=== PATIENT | female | born 1950 | race Caucasian/White ===

== ENCOUNTER 2018-06-12 19:11 | Emergency (ER) | payer BC ==
--- NOTE | 2018-06-12 19:32 | PDOC ---
History of Present Illness - General Stated Complaint: WEAKNESS History Source: Patient Exam Limitations: No Limitations - History of Present Illness Initial Comments: 06/12/18 19:53 CC: "I'm vomiting". 67 year old female with PMH HTN, HLD, NIDDM, hypothyroidism presented to ED for nausea, vomiting, diarrhea, epigastric pain since 1000 today. She stated she ate porkchop and iceberg lettuce last night, went to sleep okay, woke up fine, and at 1000 today her symptoms began. Her stated he ate all of the same food and is not sick. No sick contacts. Pt stated her abdominal pain is located to her epigastrium, intermittent, alleviated by vomiting, no aggravating factors , nonradiating. She admitted to headache, body aches, subjective fever/chills/ sweats, n/v/d/. She denied chest pain, shortness of breath, palpitations, weakness, numbness. She stated she had a near syncopal episode today, while walking to the bathroom, she felt lightheaded and she fell to the ground. Her stated he helped her to the ground, denied head injury, denied LOC. Stated the episode only lasted a couple of seconds. Allergies: Quinolones PCP: Dr. Reynolds Past History - Past Medical History Allergies/Adverse Reactions: Allergies Allergy/AdvReac Type Severity Reaction Status Date / Time Quinolones Allergy Rash Verified 06/12/18 19:43 Home Medications: Ambulatory Orders Atorvastatin Ca [Lipitor (Restricted To Cardiology)] 20 mg PO HS 03/09/12 Levothyroxine [Synthroid] 150 mcg PO DAILY 03/09/12 Verapamil HCl [Verapamil ER] 240 mg PO DAILY 03/09/12 metFORMIN XR [Glucophage Xr] mg PO DAILY@0700 03/09/12 Famotidine [Pepcid -] 20 mg PO BID #6 tablet 06/12/18 Ondansetron [Zofran Odt -] 4 mg SL TID PRN #9 od.tablet 06/12/18 Sulfamethoxazole/Trimethoprim [Bactrim Ds -] 1 tab PO BID #10 tablet 06/12/18 metroNIDAZOLE [Flagyl -] 500 mg PO TID #30 tablet 06/12/18 Cardiac Disorders: Yes (prior history of palpitations) Diabetes: Yes ([id number]) Hypercholesterolemia: Yes Thyroid Disease: Yes (hypothyroidism) - Family Disease History Family Disease History: Diabetes: Father (still alive), Heart Disease: Father - Suicide/Smoking/Psychosocial Hx Smoking Status: No Smoking History: Never smoked Have you smoked in the past 12 months: No Number of Cigarettes Smoked Daily: 0 Review of Systems - Review of Systems Able to Perform ROS?: Yes Comments:: 06/12/18 19:51 General: admitted to chills, night sweats, generalized weakness, body aches. HEENT: denied sore throat, rhinorrhea, ear pain. Heart: admitted to presyncope. denied chest pain, palpitations, lower extremity swelling, diaphoresis. Respiratory: denied shortness of breath, cough, sputum production, hemoptysis. Abdomen: admitted to abdominal pain, nausea, vomiting, diarrhea. denied constipation, blood in stool. : denied dysuria, increased urinary frequency, hematuria, urinary incontinence , flank pain. Back: denied back pain. Musculoskeletal: denied joint pain, muscle pain, joint swelling. Neurological: admitted to headache. denied dizziness, numbness, tingling, weakness. Skin: denied rash, laceration, abrasion. *Physical Exam - Physical Exam Comments: 06/12/18 19:53 Constitutional: Well-nourished, Well-developed, appearing stated age. HEENT: head is normocephalic, atraumatic. EOMI. PERRLA. oral mucosa dry. Neck: supple. Full ROM. Heart: regular rhythm. no murmurs, rubs or gallops. Lungs: clear to auscultation bilaterally. no crackles, rhonchi or wheezing. no stridor. Abdomen: soft, flat. tenderness to epigastric area. increase bowel sounds. no rebound, guarding, masses. Extremities: Peripheral pulses intact. No lower extremity edema. Neurological: CN 2-12 grossly intact. Moves all four extremities. Psych: awake, alert, oriented x3. Follows commands. Answers questions appropriately. ED Treatment Course - LABORATORY CBC & Chemistry Diagram: 06/12/18 19:50 06/12/18 19:50 Medical Decision Making - Medical Decision Making 06/12/18 19:57 67 year old female with above PMH presented to ED for epigastric pain, n/v/d/, body aches, headache, near syncopal episode. Initial Vital Signs Temp Pulse Resp BP Pulse Ox 99.1 F 78 16 119/61 99 06/12/18 19:15 06/12/18 19:15 06/12/18 19:15 06/12/18 19:15 06/12/18 19:15 Afebrile. No tachycardia. No tachypnea. Mild diastolic hypotension. No hypoxia on room air. Labs ordered: CBC, CMP, lipase, UA/UC, troponin, influenza A/B testing. Medications ordered: pepcid, maalox, zofran, 1000 cc normal saline bolus, tylenol Imaging ordered: CT abdomen/pelvis with IV contrast EKG: rate 93, regular rhythm, nonspecitic T wave abnormality. No change from 08/2011. Bedside GB ultrasound performed. - No GB wall thickening - No GB stones - No pericholecystic fluid Rectal temperature ordered. 06/12/18 20:46 CBC WBC 8.0 K/mm3 (4.0-10.0) 06/12/18 19:50 RBC 4.71 M/mm3 (3.60-5.2) 06/12/18 19:50 Hgb 14.9 GM/dL (10.7-15.3) 06/12/18 19:50 Hct 43.0 % (32.4-45.2) 06/12/18 19:50 MCV 91.4 fl (80-96) 06/12/18 19:50 MCH 31.7 pg (25.7-33.7) 06/12/18 19:50 MCHC 34.7 g/dl (32.0-36.0) 06/12/18 19:50 RDW 13.6 % (11.6-15.6) 06/12/18 19:50 Plt Count 264 K/MM3 (134-434) 06/12/18 19:50 MPV 9.3 fl (7.5-11.1) 06/12/18 19:50 Absolute Neuts (auto) 7.4 K/mm3 (1.5-8.0) 06/12/18 19:50 Neutrophils % 91.8 % (42.8-82.8) H D 06/12/18 19:50 Lymphocytes % 5.9 % (8-40) L D 06/12/18 19:50 Monocytes % 2.1 % (3.8-10.2) L 06/12/18 19:50 Eosinophils % 0.0 % (0-4.5) D 06/12/18 19:50 Basophils % 0.2 % (0-2.0) 06/12/18 19:50 Nucleated RBC % 0 % (0-0) 06/12/18 19:50 No leukocytosis Left shift. No anemia. 06/12/18 20:57 Rectal temperature 100.2 after tylenol administration. - Blood cultures, lactate, type and screen, coags ordered. - Morphine 4 mg ordered CMP Sodium 145 mmol/L (136-145) 06/12/18 19:50 Potassium 3.5 mmol/L (3.5-5.1) 06/12/18 19:50 Chloride 110 mmol/L (98-107) H 06/12/18 19:50 Carbon Dioxide 26 mmol/L (21-32) 06/12/18 19:50 Anion Gap 10 MMOL/L (8-16) 06/12/18 19:50 BUN 11 mg/dL (7-18) 06/12/18 19:50 Creatinine 0.8 mg/dL (0.55-1.3) 06/12/18 19:50 Creat Clearance w eGFR > 60 (>60) 06/12/18 19:50 Random Glucose 123 mg/dL (74-106) H 06/12/18 19:50 Calcium 8.2 mg/dL (8.5-10.1) L 06/12/18 19:50 Total Bilirubin 0.5 mg/dL (0.2-1) 06/12/18 19:50 AST 17 U/L (15-37) 06/12/18 19:50 ALT 20 U/L (13-61) 06/12/18 19:50 Alkaline Phosphatase 106 U/L (45-117) 06/12/18 19:50 Troponin I < 0.02 ng/ml (0.00-0.05) 06/12/18 19:50 Total Protein 7.4 g/dl (6.4-8.2) 06/12/18 19:50 Albumin 3.6 g/dl (3.4-5.0) 06/12/18 19:50 Lipase 112 U/L (73-393) 06/12/18 19:50 No clinically concerning electrolyte abnormalities. No TESFAYE. No transaminitis. Normal bilirubin. Normal lipase. Normal troponin. 06/12/18 21:29 Influenza A/B testing negative. 06/12/18 22:30 Lactate normal. Pt sleeping. CT abdomen/pelvis report: no acute abdominal pathology. no evidence of appendicitis, diverticulitis. No evidence of bowel obstruction, intra-abdominal abscess. I have reviewed the images myself with Dr. Roldan, we believe there is some fat stranding at the ascending colon. Dr. Sal called, went to [facility], message left. 06/12/18 22:59 Pt reassessed, stated her pain is 100% improved, currently 0/10. She stated her nausea/vomiting is resolved. Abdominal examination: abdomen soft, flat, tenderness to epigastrium. no rebound. no guarding. 06/13/18 00:00 CXR: no infiltrate. no pneumothorax. Pt will be discharged with Flagyl, Zofran, Pepcid. Pt will be discharged with Bactrim, pt informed to wait 24 hours and if nonsymptomatic to not take the Bactrim. Pt stated she is comfortable with the plan for care and will follow up with her PCP tomorrow. *DC/Admit/Observation/Transfer Diagnosis at time of Disposition: Abdominal pain, Nausea vomiting and diarrhea, Fever - Discharge Dispostion Condition at time of disposition: Improved - Prescriptions Prescriptions: Famotidine [Pepcid -] 20 mg PO BID #6 tablet metroNIDAZOLE [Flagyl -] 500 mg PO TID #30 tablet Ondansetron [Zofran Odt -] 4 mg SL TID PRN #9 od.tablet PRN Reason: Nausea And/Or Vomiting Sulfamethoxazole/Trimethoprim [Bactrim Ds -] 1 tab PO BID #10 tablet - Referrals Referrals: Gume Reynolds MD [Primary Care Provider] - - Patient Instructions Additional Instructions: You were seen today for abdominal pain. Your lab work was normal. Your EKG was normal. Your Cat-Scan was read as normal, we think there is a chance you have an infection in your colon. I have sent two antibiotics, zofran for nausea, pepcid for stomach acid to the pharmacy. hospice superintendent immediately. See your primary care doctor in 1-2 days. Your care is not complete until you follow up. Return to the Emergency Department for increasing pain, blood in vomit or stool, fever> 103F, fever>5 days, fever not responsive to tylenol/motrin, chest pain, shortness of breath, passing out or any other new, worsening or concerning symptoms. Medication instructions: START TAKING IMMEDIATELY: Flagyl, Pepcid TAKE NEEDED: Zofran WAIT 1 DAY: BACTRIM. If you are feeling better and the diarrhea is resolved after 24 hours, do not take the Bactrim. - Post Discharge Activity Forms/Work/School Notes: Back to Work, Parent(s) Back to Work Note
--- NOTE | 2018-06-12 19:39 | PDOC ---
Attending Attestation - HPI HPI: 06/12/18 20:59 Patient is a 67 year old female with a significant past medical history of HTN, HLD, Hypothyroid, diabetes (non insulin dependent), vertigo who presents to the ED with complaints of acute onset of subjective chills, epigastric AP, nausea, NBNB emesis and diarrhea that began this morning at 10 am. Patient reports eating pork chops and iceberg lettuce last night for dinner and went bed fine, but states this morning shortly after she woke up, she began to experience her symptoms. She reports experiencing associated symptoms of diarrhea and epigastric pain. Patient reports her and family eating the same meal as her but states she is the only individual who is experiencing these symptoms. Denies chest pain, Sob. Denies contact with sick individuals, out of state travelling. Denies dysuria, hematuria. Denies constipation. Denies trauma to affected area. Denies any loss consciousness. Denies any other symptoms. Allergies: Quinolones Social history: No smoking. No alcohol. No illicit drugs. Surgical history: None PMD: PCP: Dr. Reynolds - Physicial Exam PE: 06/12/18 20:59 Malaised appearing, dry membranes, nl conjunctiva, anicteric; neck supple. lungs clear, RRR, abdomen soft +epigastric TTP, no rebound or guarding. No CVAT. DACOSTA x4, no focal neuro deficits. No peripheral edema. normal color for ethnicity, WWP. <GayathriNj - Last Filed: 06/12/18 20:59> - Resident Resident Name: Janeth Christensen - ED Attending Attestation I have performed the following: I have examined & evaluated the patient, The case was reviewed & discussed with the resident, I agree w/resident's findings & plan - Medical Decision Making 06/12/18 21:02 I, Eliana Roldan MD, attest that this document has been prepared under my direction and personally reviewed by me in its entirety. I further attest, that it accurately reflects all work, treatment, procedures and medical decision -making performed by me. See HPI for details DDx abdominal pain: Renal colic, biliary colic, metabolic/electrolyte derangements. GERD, PUD, esophageal spasm, pancreatitis, hepatitis, constipation , colitis, gastroenteritis, cholecystitis, UTI, pyelonephritis, ileus, SBO, medication side effect, hernia, appendicitis, diverticulitis, mesenteric ischemia. Vital signs reviewed, +febrile rectally Prior notes reviewed, including admissions, discharges and consultations. laboratory results and imaging reviewed, basic labs and lytes wnl, notable for normal lactic acid, LFTs and lipase. stool guaiac negative for blood, flu negative. Cardiac panel_trop neg, x1, less likely cardiac origin EKG normal sinus rhythm, no interval abnormalities, narrow QRS, ST and T wave segments and morphology normal. ED course: IVF hydration, zofran, pepcid, GI cocktail. tylenol for analgesia/ antipyretic. additional morphine for AP. Bedside POCUS GB neg for stones, no sig sono reyes's, no pericholecystic fluid or wall edema. -spiked fever here rectally, septic workup including lactic, blood cultures. will do CT a/p to eval for intra abdominal pathology/infection as source stool sampling, O&p, blood and wbc/culture CT a/p no acute pathology, but on my visual interpretation, area of colitis, fat stranding and edema noted in ascending colon. attempts to call radiology, no answer. offered pt supportive care, hydration, PRN zofran/pepcid for upset stomach. pt had benign reexam of abdomen, well appearing and much more comfortable, elects for discharge offered abx, in case if fevers/sx do not resolve, but can continue to manage supportively given risks of abx use and no formal stool cultures Dispo: discharge in stable condition, close PCP follow up for reeval return precautions discussed 06/12/18 23:33 06/12/18 23:36 <Eliana Roldan - Last Filed: 06/12/18 23:37> Heart Score/ECG Review - ECG Impressions Normal ECG: Yes Comment:: 06/12/18 21:03 EKG normal sinus rhythm, no interval abnormalities, narrow QRS, ST and T wave segments and morphology normal. <Eliana Roldan - Last Filed: 06/12/18 23:37>
[2018-06-12] MEDS ORDERED: ONDANSETRON 4 MG/2 ML VIAL IVPUSH ONE (19:40)
[2018-06-12] MEDS ORDERED: SODIUM CHLORIDE 1,000 ML IV STA (19:40)
[2018-06-12 19:42] VITALS: BP 119/61; PULSE 78; BMI 33.8
[2018-06-12] MEDS ORDERED: ACETAMINOPHEN 1000 MG/100 ML VIAL (NON FORMULARY) IVPB ONE (19:48)
[2018-06-12] MEDS ORDERED: FAMOTIDINE 20 MG/50 ML IVPB 20 MG/50 ML MG IVPB ONE ×2 (19:48→20:19)
[2018-06-12] MEDS ORDERED: MAG HYDROX/AL HYDROX/SIMETH 30 ML UNIT-DOSE CUP PO ONE (19:48)
[2018-06-12 20:17] LABS: BASO % 0.2 % (0-2.0); HEMOGLOBIN 14.9 GM/dL (10.7-15.3); LYMPH % 5.9 % (8-40); MCH 31.7 pg (25.7-33.7); MCHC 34.7 g/dl (32.0-36.0); MEAN CELL VOLUME 91.4 fl (80-96); MEAN PLT VOLUME 9.3 fl (7.5-11.1); MONO % 2.1 % (3.8-10.2); NEUT % 91.8 % (42.8-82.8); PLATELET COUNT 264 K/MM3 (134-434); RBC 4.71 M/mm3 (3.60-5.2); RDW 13.6 % (11.6-15.6)
[2018-06-12] MEDS ORDERED: MAG HYDROX/AL HYDROX/SIMETH 30 ML UNIT-DOSE CUP ONE ×2 (20:19→20:20)
[2018-06-12] MEDS ORDERED: ONDANSETRON 4 MG/2 ML VIAL ONE (20:19)
[2018-06-12] MEDS ORDERED: ACETAMINOPHEN INJECTION 100 ML IVPB ONE (20:19)
[2018-06-12 20:48] LABS: ALBUMIN 3.6 g/dl (3.4-5.0); ALK PHOS 106 U/L (45-117); ANION GAP 10 MMOL/L (8-16); BILIRUBIN,TOTAL 0.5 mg/dL (0.2-1); BLOOD UREA NITROGEN 11 mg/dL (7-18); CALCIUM 8.2 mg/dL (8.5-10.1); CHLORIDE 110 mmol/L (98-107); CO2 26 mmol/L (21-32); CREATININE 0.8 mg/dL (0.55-1.3); GLUCOSE,RANDOM 123 mg/dL (74-106); LIPASE 112 U/L (73-393); POTASSIUM 3.5 mmol/L (3.5-5.1); SGOT/AST 17 U/L (15-37); SGPT/ALT 20 U/L (13-61); SODIUM 145 mmol/L (136-145); TOT PROT 7.4 g/dl (6.4-8.2)
[2018-06-12] MEDS ORDERED: morphine CARPU-JECT 4 MG/1 ML DISP.SYRIN IVPUSH ONE (21:06)
[2018-06-12] MEDS ORDERED: morphine SULFATE 4 MG/ML VIAL ONE (21:09)
[2018-06-12 21:31] VITALS: TEMP 100.2
[2018-06-12 21:35] LABS: INR 1.13 (0.83-1.09); PROTHROMBIN TIME (PATIENT) 13.4 SEC (9.7-13.0)
[2018-06-12 21:37] LABS: ACTIVATED PTT 27.7 SECONDS (25.2-36.5)
[2018-06-12 21:56] LABS: PLATELET ESTIMATE ADEQUATE
[2018-06-12] MEDS ORDERED: metroNIDAZOLE 500 MG TABLET PO ONE (23:15)
[2018-06-12] MEDS ORDERED: metroNIDAZOLE 250 MG TABLET ONE (23:54)
--- NOTE | 2018-06-13 09:50 | EKG ---
Test Reason : Blood Pressure : / mmHG Vent. Rate : 093 BPM Atrial Rate : 093 BPM P-R Int : 156 ms QRS Dur : 090 ms QT Int : 358 ms P-R-T Axes : 066 038 066 degrees QTc Int : 445 ms POOR DATA QUALITY, INTERPRETATION MAY BE ADVERSELY AFFECTED NORMAL SINUS RHYTHM NONSPECIFIC T WAVE ABNORMALITY ABNORMAL ECG WHEN COMPARED WITH ECG OF 09-MAR-2012 22:16, NO SIGNIFICANT CHANGE WAS FOUND Confirmed by DIPESH BREWER, CIARRA ([id number]) on 06/13/2018 9:50:26 AM Referred By: Confirmed By:CIARRA LANDON MD
== END 2018-06-13 00:27 | disposition home or self-care (01) ==
LOC: JER 19:11
PROC: 3E033NZ Introduction of Analgesics, Hypnotics, Sedatives into Peripheral Vein, Percutaneous Approach (ICD-10-PCS; principal; 2018-06-12)
PROC: 3E033GC Introduction of Other Therapeutic Substance into Peripheral Vein, Percutaneous Approach (ICD-10-PCS; 2018-06-12)
PROC: 3E0337Z Introduction of Electrolytic and Water Balance Substance into Peripheral Vein, Percutaneous Approach (ICD-10-PCS; 2018-06-12)
DX: R10.13 Epigastric pain (principal); R11.2 Nausea with vomiting, unspecified; R19.7 Diarrhea, unspecified; R50.9 Fever, unspecified; E11.9 Type 2 diabetes mellitus without complications; E78.00 Pure hypercholesterolemia, unspecified; E03.9 Hypothyroidism, unspecified
CPT/HCPCS: 36415; 71046-TC-FY; 74177-TC; 80053; 82272; 83605; 83690; 84484; 85025; 85610; 85730; 86850; 86900; 86901; 87040; 87804; 93005; 93010; 99283-25; J0131; J7030

== ENCOUNTER 2020-06-01 09:27 | Emergency (ER) | payer OTHER, BC ==
[2020-06-01 09:37] VITALS: BMI 36.6
[2020-06-01] MEDS ORDERED: FAMOTIDINE 20 MG/50 ML IVPB 20 MG/50 ML MG IVPB ONE ×2 (10:09→10:24)
[2020-06-01] MEDS ORDERED: ONDANSETRON 4 MG/2 ML VIAL IVPUSH ONE (10:09)
[2020-06-01] MEDS ORDERED: SODIUM CHLORIDE 0.9% 500 ML INFUS.BAG IV ONE (10:09)
[2020-06-01] MEDS ORDERED: MAG HYDROX/AL HYDROX/SIMETH 30 ML UNIT-DOSE CUP PO ONE (10:09)
[2020-06-01] MEDS ORDERED: ACETAMINOPHEN 1000 MG/100 ML VIAL (NON FORMULARY) IVPB ONE (10:09)
[2020-06-01] MEDS ORDERED: ACETAMINOPHEN INJECTION 100 ML IVPB ONE (10:23)
[2020-06-01] MEDS ORDERED: MAG HYDROX/AL HYDROX/SIMETH 30 ML UNIT-DOSE CUP ONE (10:23)
[2020-06-01] MEDS ORDERED: ONDANSETRON 4 MG/2 ML VIAL ONE (10:23)
[2020-06-01 10:29] LABS: VENOUS BASE EXCESS -2.1 mmol/L (-2-2); VENOUS O2 SATURATION 70.9 % (70-80); VENOUS PCO2 36.8 mmHg (38-52); VENOUS PH 7.396 (7.310-7.410)
[2020-06-01 10:33] LABS: BASO % 0.7 % (0-2.0); HEMATOCRIT 42.3 % (32.4-45.2); HEMOGLOBIN 14.1 GM/dL (10.7-15.3); MCH 29.9 pg (25.7-33.7); MCHC 33.3 g/dl (32.0-36.0); MEAN CELL VOLUME 89.8 fl (80-96); MEAN PLT VOLUME 9.3 fl (7.5-11.1); MONO % 5.8 % (3.8-10.2); NEUT % 66.5 % (42.8-82.8); PLATELET COUNT 198 K/MM3 (134-434); RBC 4.71 M/mm3 (3.60-5.2); RDW 13.7 % (11.6-15.6); WHITE BLOOD COUNT 3.3 K/mm3 (4.0-10.0)
[2020-06-01 10:40] LABS: INR 1.09 (0.83-1.09); PROTHROMBIN TIME (PATIENT) 13.1 SEC (9.7-13.0)
[2020-06-01 10:43] LABS: ACTIVATED PTT 28.8 SECONDS (25.2-36.5)
[2020-06-01 10:59] LABS: CHLORIDE 109 mmol/L (98-107); POTASSIUM 3.3 mmol/L (3.5-5.1); SODIUM 140 mmol/L (136-145)
[2020-06-01 11:01] LABS: CALCIUM 8.1 mg/dL (8.5-10.1)
[2020-06-01 11:02] LABS: ALBUMIN 3.1 g/dl (3.4-5.0); ANION GAP 6 MMOL/L (8-16); BLOOD UREA NITROGEN 10.4 mg/dL (7-18); CO2 24 mmol/L (21-32); GLUCOSE,RANDOM 115 mg/dL (74-106)
[2020-06-01 11:04] LABS: BILIRUBIN,DIRECT 0.1 mg/dL (0.0-0.2); CREATININE 0.6 mg/dL (0.55-1.3); SGPT/ALT 25 U/L (13-61)
[2020-06-01 11:05] LABS: SGOT/AST 25 U/L (15-37)
[2020-06-01 11:06] LABS: BILIRUBIN,TOTAL 0.3 mg/dL (0.2-1); TOT PROT 6.6 g/dl (6.4-8.2)
[2020-06-01 11:07] LABS: ALK PHOS 87 U/L (45-117)
[2020-06-01] MEDS ORDERED: POTASSIUM CHLORIDE TABS 20 MEQ TABLET.ER (FP) PO ONE ×2 (11:42→12:01)
[2020-06-01 13:01] VITALS: BP 150/98; PULSE 81; TEMP 98.3
[2020-06-01 13:15] LABS: LDH 204 U/L (84-246)
== END 2020-06-01 13:03 | disposition home or self-care (01) ==
LOC: JER 09:27
PROC: 3E0333Z Introduction of Anti-inflammatory into Peripheral Vein, Percutaneous Approach (ICD-10-PCS; principal; 2020-06-01)
PROC: 3E033GC Introduction of Other Therapeutic Substance into Peripheral Vein, Percutaneous Approach (ICD-10-PCS; 2020-06-01)
PROC: 3E033GC Introduction of Other Therapeutic Substance into Peripheral Vein, Percutaneous Approach (ICD-10-PCS; 2020-06-01)
DX: U07.1 COVID-19 (principal)
CPT/HCPCS: 36415; 71045-TC-FY; 80053; 82248; 82550; 82728; 82803; 83605; 83615; 84484; 85025; 85610; 85730; 86140; 87040; 93005; 93010; 99285-25; C9803; J0131; U0003

== ENCOUNTER 2020-06-03 19:23 | Emergency (ER) | payer OTHER, BC ==
[2020-06-03] MEDS ORDERED: LACTATED RINGERS SOLUTION 1000 ML INFUS.BAG IV ONE (20:18)
[2020-06-03] MEDS ORDERED: FAMOTIDINE 20 MG/50 ML IVPB 20 MG/50 ML MG IVPB ONE ×2 (20:30→20:40)
[2020-06-03] MEDS ORDERED: ACETAMINOPHEN 1000 MG/100 ML VIAL (NON FORMULARY) IVPB ONE (20:30)
[2020-06-03] MEDS ORDERED: ACETAMINOPHEN INJECTION 100 ML IVPB ONE (20:39)
[2020-06-03 21:03] VITALS: BMI 28.3
[2020-06-03 22:03] LABS: BASO % 0.5 % (0-2.0); EOS % 0.7 % (0-4.5); HEMATOCRIT 40.6 % (32.4-45.2); HEMOGLOBIN 13.8 GM/dL (10.7-15.3); LYMPH % 42.4 % (8-40); MCH 30.7 pg (25.7-33.7); MCHC 33.9 g/dl (32.0-36.0); MEAN CELL VOLUME 90.6 fl (80-96); MEAN PLT VOLUME 9.5 fl (7.5-11.1); MONO % 8.2 % (3.8-10.2); NEUT % 48.2 % (42.8-82.8); PLATELET COUNT 192 K/MM3 (134-434); RBC 4.48 M/mm3 (3.60-5.2); RDW 13.9 % (11.6-15.6); WHITE BLOOD COUNT 4.2 K/mm3 (4.0-10.0)
[2020-06-03 22:14] LABS: INR 1.04 (0.83-1.09); PROTHROMBIN TIME (PATIENT) 12.6 SEC (9.7-13.0)
[2020-06-03 22:16] LABS: CHLORIDE 107 mmol/L (98-107); POTASSIUM 3.1 mmol/L (3.5-5.1); SODIUM 142 mmol/L (136-145)
[2020-06-03 22:17] LABS: ACTIVATED PTT 23.9 SECONDS (25.2-36.5)
[2020-06-03] MEDS ORDERED: POTASSIUM CHLORIDE ORAL LIQUID 20 MEQ/15 ML PO ONE (22:17)
[2020-06-03 22:19] LABS: ALBUMIN 2.8 g/dl (3.4-5.0); ANION GAP 8 MMOL/L (8-16); BLOOD UREA NITROGEN 10.3 mg/dL (7-18); CALCIUM 7.8 mg/dL (8.5-10.1); CO2 28 mmol/L (21-32); LIPASE 122 U/L (73-393)
[2020-06-03 22:20] LABS: GLUCOSE,RANDOM 87 mg/dL (74-106)
[2020-06-03 22:22] LABS: BILIRUBIN,DIRECT 0.1 mg/dL (0.0-0.2); CREATININE 0.6 mg/dL (0.55-1.3); SGPT/ALT 25 U/L (13-61)
[2020-06-03 22:23] LABS: LDH 258 U/L (84-246)
[2020-06-03 22:24] LABS: BILIRUBIN,TOTAL 0.3 mg/dL (0.2-1); TOT PROT 6.4 g/dl (6.4-8.2)
[2020-06-03 22:25] LABS: ALK PHOS 81 U/L (45-117)
[2020-06-03 22:35] LABS: SGOT/AST 30 U/L (15-37)
[2020-06-03] MEDS ORDERED: POTASSIUM CHLORIDE ORAL LIQUID 20 MEQ/15 ML ONE (22:59)
[2020-06-04] MEDS ORDERED: POTASSIUM CHLORIDE ORAL LIQUID 20 MEQ/15 ML PO ONE (01:32)
[2020-06-04] MEDS ORDERED: POTASSIUM CHLORIDE ORAL LIQUID 20 MEQ/15 ML ONE (02:10)
[2020-06-04 02:22] VITALS: BP 136/60; PULSE 84
[2020-06-04 02:53] VITALS: TEMP 98.4
== END 2020-06-04 03:04 | disposition home or self-care (01) ==
LOC: JER 19:23
PROC: 3E0333Z Introduction of Anti-inflammatory into Peripheral Vein, Percutaneous Approach (ICD-10-PCS; principal; 2020-06-03)
PROC: 3E033GC Introduction of Other Therapeutic Substance into Peripheral Vein, Percutaneous Approach (ICD-10-PCS; 2020-06-03)
DX: R19.7 Diarrhea, unspecified (principal); E87.6 Hypokalemia
CPT/HCPCS: 36415; 71045-TC-FY; 74177-TC; 80053; 82248; 82550; 82728; 83605; 83615; 83690; 84484; 85025; 85610; 85730; 86140; 93005; 93010; 99285-25; J0131; Q9967

== ENCOUNTER 2022-07-16 00:39 | Inpatient (IN) | payer OTHER, BC ==
[2022-07-16 01:17] VITALS: BMI 37.5
[2022-07-16 02:28] LABS: BASO % 0.5 % (0-2.0); EOS % 2.3 % (0-4.5); HEMATOCRIT 38.4 % (32.4-45.2); LYMPH % 22.3 % (8-40); MCH 30.7 pg (25.7-33.7); MCHC 33.9 g/dl (32.0-36.0); MEAN CELL VOLUME 90.5 fl (80-96); MEAN PLT VOLUME 8.7 fl (7.5-11.1); MONO % 7.1 % (3.8-10.2); NEUT % 67.8 % (42.8-82.8); PLATELET COUNT 289 10^3/uL (134-434); RBC 4.24 M/mm3 (3.60-5.2); RDW 13.9 % (11.6-15.6); WHITE BLOOD COUNT 10.8 K/mm3 (4.0-10.0)
[2022-07-16 02:35] LABS: INR 1.15 (0.83-1.09); PROTHROMBIN TIME (PATIENT) 13.3 SEC (9.7-13.0)
[2022-07-16 02:38] LABS: ACTIVATED PTT 30.4 SECONDS (25.2-36.5)
[2022-07-16 02:53] LABS: CALCIUM 8.3 mg/dL (8.5-10.1)
[2022-07-16 02:54] LABS: ALBUMIN 3.1 g/dl (3.4-5.0); BLOOD UREA NITROGEN 21.9 mg/dL (7-18)
[2022-07-16 02:57] LABS: CREATININE 0.8 mg/dL (0.55-1.3)
[2022-07-16 02:59] LABS: BILIRUBIN,TOTAL 0.3 mg/dL (0.2-1); TOT PROT 6.6 g/dl (6.4-8.2)
[2022-07-16 03:02] LABS: N-TERMINAL BNP 368.4 pg/ml (5-125)
[2022-07-16] MEDS ORDERED: FUROSEMIDE 40 MG/4 ML INJECTABLE VIAL IVPUSH ONE (04:41)
[2022-07-16] MEDS ORDERED: POTASSIUM CHLORIDE TABS 20 MEQ TABLET.ER (FP) PO ONE (04:42)
[2022-07-16] MEDS ORDERED: FUROSEMIDE 40 MG/4 ML INJECTABLE VIAL ONE (05:07)
[2022-07-16] MEDS ORDERED: POTASSIUM CHLORIDE ORAL LIQUID 20 MEQ/15 ML ONE ×2 (05:07→12:14)
[2022-07-16] MEDS ORDERED: MAGNESIUM SULF 50% (8.12 MEQ/2 ML-1 GM VIAL) IVPB ONE (05:26)
[2022-07-16] MEDS ORDERED: MAGNESIUM SULFATE IN WATER 2 GM/50 ML IVPB IVPB ONE (05:52)
[2022-07-16] MEDS ORDERED: LEVOTHYROXINE NA 100 MCG TABLET (FP) PO SCH (07:00)
[2022-07-16] MEDS ORDERED: LEVOTHYROXINE NA 50 MCG TABLET (FP) ONE (09:03)
[2022-07-16] MEDS ORDERED: ENOXAPARIN NA (PORCINE) 40 MG/0.4 ML DISP.SYRIN SQ SCH (10:00)
[2022-07-16] MEDS ORDERED: POTASSIUM CHLORIDE ORAL LIQUID 20 MEQ/15 ML PO SCH (10:00)
[2022-07-16 11:48] LABS: MAGNESIUM 1.6 mg/dL (1.8-2.4)
[2022-07-16 11:52] LABS: PHOSPHOROUS 3.5 mg/dL (2.5-4.9)
[2022-07-16] MEDS ORDERED: MAGNESIUM OXIDE 400 MG TABLET (FP) PO ONE (12:27)
[2022-07-16 12:36] VITALS: BP 139/85; PULSE 79; RESP 18; TEMP 98.1
[2022-07-16] MEDS ORDERED: MAGNESIUM OXIDE 400 MG TABLET (FP) ONE (12:38)
[2022-07-16] MEDS ORDERED: ATORVASTATIN CA 20 MG TABLET (FP) PO SCH (22:00)
== END 2022-07-16 12:59 | disposition home or self-care (01) | DRG 310 ==
LOC: JER 00:39 → JERBED 03:30 → OBSVTOIN 06:34
PROVIDERS: ADMIT Internal Medicine; ATTEND Internal Medicine
DX: R00.2 Palpitations (principal); K21.9 Gastro-esophageal reflux disease without esophagitis; E03.9 Hypothyroidism, unspecified; E78.5 Hyperlipidemia, unspecified; R07.89 Other chest pain; E66.9 Obesity, unspecified; Z68.37 Body mass index [BMI] 37.0-37.9, adult; E87.6 Hypokalemia; D72.829 Elevated white blood cell count, unspecified; E11.65 Type 2 diabetes mellitus with hyperglycemia; I11.0 Hypertensive heart disease with heart failure; I50.9 Heart failure, unspecified
CPT/HCPCS: 0241U-QW; 36415; 71045-TC-FY; 80053; 83036; 83735; 83880; 84100; 84443; 84484; 85025; 85610; 85730; 93005; 93010; 99285-25; G0378